=== PATIENT | female | born 1965 | race American Indian/Alaskan Native ===

== ENCOUNTER 2020-06-10 09:58 | Outpatient (CLI) | payer OTHER ==
--- NOTE | 2020-06-10 13:03 | Mammography Report ---
BILATERAL DIGITAL SCREENING MAMMOGRAM WITH CAD WITH TOMOSYNTHESIS HISTORY: Screening mammogram. TECHNIQUE: Routine digital mammographic imaging performed. This examination was interpreted with th e benefit of Computer-aided Detection analysis. Tomosynthesis images were acquired and reviewed. COMPARISON: None currently available, the patient reports prior mammograms at an outside facility and these will be requested. FINDINGS: Breast Density: scattered fibroglandular appearance of the breast tissue. Digital CC and MLO views demonstrate questionable area of architectural distortion within the right l ateral breast at middle depth. Additionally, there is a focal asymmetry in the right upper outer alice st at middle depth. No suspicious findings within the left breast. IMPRESSION: Questionable area of architectural distortion in the right lateral breast. Right upper outer breast focal asymmetry. Comparison to prior outside mammograms is recommended to assess the stability of the above findings. We will request prior mammograms and an addendum will be added to this report once they are received. BIRADS 0-Incomplete: Needs additional imaging evaluation FURTHER INFORMATION: According to the [employer], yearly mammograms are recommend ed starting at age 40 and continuing as long as a woman is in good health. Clinical Breast Exams shou ld be part of a periodic health exam-about every 3 years for women in their 20s and 30s and every yea r for women 40 and over. Breast self exam is an option for women starting in their 20s. Any breast ch sylvester noted on a breast self exam should be reported promptly to the patient's healthcare provider. Br east MRI is recommended for women with an approximately 20-25% or greater lifetime risk of breast can cer, including women with a strong family history of breast or ovarian cancer and women who have been treated for Hodgkin's disease. A negative Mammography report should not discourage follow up or biopsy of a clinically significant f inding and/or abnormality. Dense breast tissue may obscure small neoplasms. The patient will be entered into a reminder system with a target due date for the next screening mamm ogram. Signer Name: Julio Paul MD Signed: 06/10/2020 12:59 PM Workstation Name: [id number]
== END 2020-06-10 09:59 | disposition home or self-care (01) ==
LOC: SPVWC 09:58
PROVIDERS: ATTEND Surgery
DX: Z12.31 Encounter for screening mammogram for malignant neoplasm of breast (principal)
CPT/HCPCS: 77063; 77067